=== PATIENT | male | born 1985 | race Caucasian/White ===

== ENCOUNTER 2019-04-02 15:02 | Emergency (ER) | payer OTHER ==
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
[2019-04-02 15:12] VITALS: BP 152/95
[2019-04-02] MEDS ORDERED: IBUPROFEN 800 MG TAB PO ONE (15:35)
[2019-04-02] MEDS ORDERED: CYCL10TA29 PO (15:36)
== END 2019-04-02 15:48 | disposition home or self-care (01) ==
LOC: ER 15:12
DX: S39.012A Strain of muscle, fascia and tendon of lower back, initial encounter (principal); V69.9XXA Occupant (driver) (passenger) of heavy transport vehicle injured in unspecified traffic accident, initial encounter
CPT/HCPCS: 99283